=== PATIENT | female | born 1955 | race Caucasian/White ===

== ENCOUNTER → 2017-12-09 | Outpatient (CLI) | payer OTHER ==
[~2017-12-09] MED LIST: ACCUPRIL PO; ACTOS 30 MG TAB30 MG PO; ASPIRIN81 M2 PO; B-COMPLEX-VITA1 EACH PO; CALCIUM PO; CENTRUM SILVER1 EAC4 PO; COMPLETE M9 MG/15 ML PO; CYMBALTA60 MG PO; DILAUDID 2 MG TA2 MG PO; DOLOPHINE HCL5 MG PO; HUMALOG100 UNIT/1 SQ; HYDROCHLOROTHIA25 M1 PO; LANTUS SC; LANTUS SUBQ; LIPITOR20 MG PO; METHADONE HCL5 MG PO; MOBIC15 MG PO; MS CONTIN15 MG PO; NEURONTIN800 MG PO; NORCO 5-325 TA1 EACH PO; NORVASC10 MG PO; NOVOLOG100 UNIT/1 SQ; PERCOCET 10-321 EAC1 PO; PERCOCET 10-321 EACH PO; PERCOCET 7.5-31 EAC1 PO; PERCOCET 7.5-31 EACH PO; PERCOCET PO; PREVACID15 MG PO; PRILOSEC40 MG PO; PROLIA60 MG/1 ML SQ; RESTASIS1 EACH OPHTHALMIC; SENNA PO; TRAMADOL 50 MG50 MG PO; VITAMIN B-12100 MC1 PO; VITAMIN D2000 UNIT PO; WELCHOL 625 MG625 MG PO; ZYRTEC10 M2 PO; [UNRECOGNIZED DRUG - OTHER] PO; [UNRECOGNIZED DRUG - OTHER] PO; [UNRECOGNIZED DRUG - OTHER] PO; [UNRECOGNIZED DRUG - OTHER] PO; [UNRECOGNIZED DRUG - REMARK] PO
--- NOTE | 2017-12-10 08:24 | PAINCON ---
[facility] [address] [place] [address] PAIN MANAGEMENT CONSULTATION Name: KHUSHBOO ROSAS Room: [facility] IGGY Ralph#: [id number] Admission: 12/09/17 Attend Phys: Mai Richardson Discharge: Date of : 57 Report #: [id number] THIS REPORT FOR: //name// CC: Jen Doe DATE OF SERVICE: 12/09/2017 The patient is a 62-year-old female typically treated for lumbar radiculopathy, chronic pain, requiring high-risk complex medication management. Comorbidity includes morbid obesity. She was last seen in the Pain Clinic on 10/14/2017, continued methadone 5 mg 2 in the morning, 1 at noon, and 2 at night and Percocet 10/325 four a day. We talked about weaning of methadone at last visit. She does return to Pain Clinic today. She has weaned down to 1 methadone in the morning, 1 at noon, and 2 at night. Notes pain continues to be problematic with subjective pain impact score 7 on a VAS. She states she has completed a course of physical therapy. She is now doing home exercises. She notes she uses a walker about 95% of the time, came off 5% of the time. Primarily balance issues and concerns. She fell actually at her last visit to the Pain Clinic. During the exam today, note that she seems to be a little more "jerky and spastic." I mentioned this to the patient today. I am concerned that she is on a supratherapeutic dose of opiate, currently with 4 methadone a day (20 mg equating to roughly 80 mg of morphine and Percocet 10/325 four a day equating to about another 60 mg of morphine). The patient is a supratherapeutic dose of around 140 mg of morphine a day. Today, we talked about weaning Percocet down to 7.5/325 four a day and continue methadone 1 in the morning, 1 at noon, and 2 at night. A buccal drug swab was accomplished today. It should be positive for oxycodone and methadone. Discussion with the patient today about therapeutic issues. She rates her pain a 7 on a VAS. Again, bilateral knees, low back. PHYSICAL EXAMINATION: Shows a morbidly obese 62-year-old female, BMI is 44 kg/m2, blood pressure 125/89, pulse 88, respirations are 18. Alert and oriented to person, place and time, judged to be a reasonable historian. Rises from the chair using the walker, antalgic gait, again some spasticity noted with activity. We reviewed the fact that opiate medications are being used to provide analgesia adequate to support activities of daily living, [place] [address] PAIN MANAGEMENT CONSULTATION Name: KHUSHBOO ROSSA Riri Room: [facility] IGGY Ralph#: [id number] Admission: 12/09/17 Attend Phys: Mai Richardson Discharge: Date of : 57 Report #: [id number] specific pain score on the 0-10 Visual Analog Scale. The current opiate medications are providing sufficient analgesia to allow the patient to participate in activities of daily living. The patient is not exhibiting any aberrant behavior suggestive of drug diversion. The patient is not having any adverse reactions to medications. The patient is not suffering from daytime somnolence or mental acuity changes. The patient is managing opiate-induced constipation with appropriate ypec-cqr-jfmvjth agents and dietary considerations. The patient was counseled on concern for caution with operating a motor vehicle while using opiate medications. A physical exam was performed and the patient's functional status was evaluated. All patients with back pain were advised against the bed rest greater than 4 days and were advised to return to normal activities. Pain score assessment was noted and the treatment plan was reviewed with the patient. All current medications, both prescribed and OTC were reviewed and reconciled on the electronic medical record. Tobacco screening was accomplished and smoking cessation was advised when indicated. BMI was noted and diet/exercise modification was recommended for all patients following outside normal parameters. I reviewed with the patient today their responsibilities to safeguard prescription medications, reviewed their responsibility to utilize medications only as prescribed by the physician. They are to seek and receive pain medications only from 1 physician group ( [facility]). They are to use 1 pharmacy and keep the clinic informed if they change pharmacies. Their responsibilities include making followup visits in a timely fashion and to avoid abrupt discontinuation of medication usage. Their responsibilities further include bringing their medications (bottles from the pharmacy with residual pills) to the visit for possible confirmation of pill counts and the patient understands it is their responsibility to submit to random drug screens to ensure both that the medications prescribed are present, and that no other controlled substances are present. All prescriptions provided today were generated electronically. ASSESSMENT: Lumbar radiculopathy, neuropathic pain, chronic pain syndrome requiring high-risk complex medication management. RECOMMENDATIONS: 1. Buccal drug swab today. 2. Renew methadone 5 mg, decreasing from 150 to 120 tablets a month. 3. Decrease Percocet from 10/325 to 7.5/325 up to 4 a day. Follow up in 2 months for reevaluation. We will review buccal drug swab, consider further [place] [address] PAIN MANAGEMENT CONSULTATION Name: KHUSHBOO ROSAS Room: [facility]#: [id number] Admission: 12/09/17 Attend Phys: Mai Richardson Discharge: Date of : 57 Report #: [id number] Discharged in good and stable condition after prolonged visit from 11:20-11:45, greater than 50% of time spent counseling the patient. <ELECTRONICALLY SIGNED> By: Vicente Doe DO 12/10/17 0824 [id number] Doe DO /nt
== END ==
LOC: M.PC 01:26
DX: M54.16 Radiculopathy, lumbar region (principal); G89.4 Chronic pain syndrome; E66.01 Morbid (severe) obesity due to excess calories; Z79.899 Other long term (current) drug therapy

== ENCOUNTER → 2018-02-03 | Outpatient (CLI) | payer OTHER ==
--- NOTE | 2018-02-08 07:00 | PAINCON ---
[address] [address] PAIN MANAGEMENT CONSULTATION Name: KHUSHBOO ROSAS Room: [facility] IGGY Ralph#: [id number] Admission: 02/03/18 Attend Phys: Mai Richradson Discharge: Date of : 57 Report #: [id number] THIS REPORT FOR: //name// CC: Jen Doe The patient is a 62-year-old female, long treated for lumbar radiculopathy, chronic pain syndrome requiring complex medication management. Comorbidity includes morbid obesity. Last seen in pain clinic, 12/09/2017. We continued methadone 5 mg having lowered from 5 to 4 tablets a day the prior visit (1 tab in the morning, 1 at noon, and 2 at night). We lowered Percocet at last visit 10/ four a day down to 7.5 four a day. Buccal swab at last visit was positive for prescribed medications. She returns to pain clinic today. She continues at a supratherapeutic opiate load at 125 mEq of morphine. I talked at length today about opiate-induced hyperalgesia. The patient tells me with lowering opiate, her pain has gotten a little worse. We talked about our goal of continuing to lower opiate as able. She uses a walker 90+ percent of the time for balance and for some assist. We talked about physical therapy. She does do "laps" around her home, trying to walk as much as she can. We suggested she follow with water aerobics. She looked in the [facility] and has actually been a member there but that was cost prohibitive. She tells me that the [place] pool which is an indoor pool and offers water aerobics is cost effective for her. I strongly encouraged to follow up with this. PHYSICAL EXAMINATION: Otherwise notes 5 feet 3 inch, 248 pound female, BMI is 44.5 kilograms per meter squared. Blood pressure is 149/53, pulse is 90, respirations are 16. Subjective pain score is 8 on VAS. Primary pain in the mid back, bilateral knees. Rises from chair using armrests, again moderately ataxic and antalgic gait with a walker. She has diffuse tenderness across the low back, pain about the knees, though with her body habitus, it is difficult to detect any ballotable edema. She does have greater than 90 degree flexion of the knees. Lower extremity strength is symmetric. We reviewed the fact that opiate medications are being used to provide analgesia adequate to support activities of daily living, not attempting to achieve a specific pain score on the 0-10 Visual Analog Scale. The current opiate medications are providing sufficient analgesia to allow the patient to participate in activities of daily living. The patient is not exhibiting any aberrant behavior suggestive of drug diversion. The patient is not having any adverse reactions to medications. The patient is not suffering from daytime somnolence or mental acuity changes. The patient is managing opiate-induced constipation with appropriate titp-tjt-qldhnvw agents and dietary considerations. The patient was counseled on concern for caution with operating a motor vehicle while [place] [address] PAIN MANAGEMENT CONSULTATION Name: ROSASKHUSHBOO J [id number] Admission: 02/03/18 Attend Phys: Mai Richardson Discharge: Date of : 57 Report #: [id number] A physical exam was performed and the patient's functional status was evaluated. All patients with back pain were advised against the bed rest greater than 4 days and were advised to return to normal activities. Pain score assessment was noted and the treatment plan was reviewed with the patient. All current medications, both prescribed and OTC were reviewed and reconciled on the electronic medical record. Tobacco screening was accomplished and smoking cessation was advised when indicated. BMI was noted and diet/exercise modification was recommended for all patients following outside normal parameters. I reviewed with the patient today their responsibilities to safeguard prescription medications, reviewed their responsibility to utilize medications only as prescribed by the physician. They are to seek and receive pain medications only from 1 physician group ( [facility]). They are to use 1 pharmacy and keep the clinic informed if they change pharmacies. Their responsibilities include making followup visits in a timely fashion and to avoid abrupt discontinuation of medication usage. Their responsibilities further include bringing their medications (bottles from the pharmacy with residual pills) to the visit for possible confirmation of pill counts and the patient understands it is their responsibility to submit to random drug screens to ensure both that the medications prescribed are present, and that no other controlled substances are present. All prescriptions provided today were generated electronically. RECOMMENDATION: Continue methadone 5 mg 1 in the morning, 1 at noon, and 2 at night. Continue Percocet 7.5/325 four a day, meloxicam daily and gabapentin 800 mg t.i.d. Follow up in 2 months for reevaluation. We will try and wean opiate load further as able. Discharged in good and stable condition. <ELECTRONICALLY SIGNED> By: Vicente Doe DO 02/08/18 0700 [id number] Doe DO /nt
== END ==
LOC: M.PC 08:07
DX: M54.16 Radiculopathy, lumbar region (principal); G89.4 Chronic pain syndrome; Z79.899 Other long term (current) drug therapy

== ENCOUNTER → 2018-03-31 | Outpatient (CLI) | payer OTHER ==
--- NOTE | 2018-04-01 07:19 | PAINCON ---
[address] [address] PAIN MANAGEMENT CONSULTATION Name: KHUSHBOO ROSAS Room: [facility] IGGY Ralph#: [id number] Admission: 03/31/18 Attend Phys: Mai Richardson Discharge: Date of : 57 Report #: [id number] THIS REPORT FOR: //name// CC: Jen Doe DATE OF SERVICE: 03/31/2018 The patient is a 62-year-old female, long treated for lumbar radiculopathy requiring high risk complex medication management. Comorbidities include morbid obesity. She has had ongoing osteoarthritis affecting her knees. Last visit was 02/03/2018. We had begun weaning the patient's chronic opiate analgesics. She has been using Percocet 10/325 for breakthrough pain up to 4 a day along with methadone 5 mg 1 in the morning, 1 at noon, and 2 at night. Last visit, we decreased Percocet to 7.5/325. The patient states pain continues to be problematic, rates it a "10" on VAS. She states pain is primarily low back and bilateral knees. She states she had stubbed her foot and broke 2 toes in the right foot, but her pain was getting worse even before this. She uses a walker to ambulate to help with balance. PHYSICAL EXAMINATION: Unchanged. Morbidly obese, 5 feet 3 inches, 253-pound female, BMI is 44.5 kilograms per meter squared. Blood pressure 158/88, pulse 80, respirations 16. Lower extremity strength is modestly diminished. She is wearing a walking post-surgical boot on her left foot. Lower extremity strength diminished but symmetric. We reviewed diagnostic findings, somewhat dated MRI from 02/28/2015 noting a vacuum disk phenomena at L5-S1 with grade 1 subluxation and spondylolisthesis. There was a question of a bulging disk, left of midline L5-S1, though presently, it does not correlate with any significant lumbar radicular symptoms. We reviewed the fact that opiate medications are being used to provide analgesia adequate to support activities of daily living, not attempting to achieve a specific pain score on the 0-10 Visual Analog Scale. The current opiate medications are providing sufficient analgesia to allow the patient to participate in activities of daily living. The patient is not exhibiting any aberrant behavior suggestive of drug diversion. The patient is not having any adverse reactions to medications. The patient is not suffering from daytime somnolence or mental acuity changes. The patient is managing opiate-induced constipation with appropriate ovxz-ryj-lahqlzg agents and dietary considerations. The patient was counseled on concern for caution with operating a motor vehicle while using opiate medications. A physical exam was performed and the patient's functional status was evaluated. All patients with back pain were advised against the bed rest greater than 4 [place] [address] PAIN MANAGEMENT CONSULTATION Name: ROSASKHUSHBOO J [id number] Admission: 03/31/18 Attend Phys: Mai Richardson Discharge: Date of : 57 Report #: [id number] days and were advised to return to normal activities. Pain score assessment was noted and the treatment plan was reviewed with the patient. All current medications, both prescribed and OTC were reviewed and reconciled on the electronic medical record. Tobacco screening was accomplished and smoking cessation was advised when indicated. BMI was noted and diet/exercise modification was recommended for all patients following outside normal parameters. I reviewed with the patient today their responsibilities to safeguard prescription medications, reviewed their responsibility to utilize medications only as prescribed by the physician. They are to seek and receive pain medications only from 1 physician group ( [facility]). They are to use 1 pharmacy and keep the clinic informed if they change pharmacies. Their responsibilities include making followup visits in a timely fashion and to avoid abrupt discontinuation of medication usage. Their responsibilities further include bringing their medications (bottles from the pharmacy with residual pills) to the visit for possible confirmation of pill counts and the patient understands it is their responsibility to submit to random drug screens to ensure both that the medications prescribed are present, and that no other controlled substances are present. All prescriptions provided today were generated electronically. ASSESSMENT: Axial back pain, lumbar radiculopathy, chronic pain syndrome requiring complex medication management in a morbidly obese female who is quite sedentary. RECOMMENDATION: I had a long discussion with the patient today. In fact, she was seen for approximately 30 minutes today. We discussed risk stratification for opiate analgesics talking about 0-50, 50-90 and 90+ mg morphine equivalents daily. She is currently utilizing approximately 125 mEq of morphine putting her into the high risk group. I told her we need to endeavor to continue to wean her opiate analgesic. Would like to at least get below 90 mEq of morphine. We elected to lower her methadone from 5 mg 4 tablets a day to 3 a day, decreasing the overall opiate load to 105 mg morphine equivalents. We will keep her Percocet at 7.5/325. Continue gabapentin 800 mg t.i.d. At next visit we may consider decreasing prn med to Percocet 5/325? I think the patient would benefit from weight loss. She states that she has tried everything. She, I think, would be an excellent candidate for bariatric surgery and strongly recommended that she seek consultation for same. She needs to increase physical activity, but states her weight limits her function. She complains of pain precluding functional issues as well. I pointed out she has been on a "supratherapeutic" dose of opiate and despite this, has been unable to increase functional activity. I think at this point, we need to take a turn our focus and [place] [address] PAIN MANAGEMENT CONSULTATION Name: ROSASKHUSHBOO Room: [facility]#: [id number] Admission: 03/31/18 Attend Phys: Mai Richardson Discharge: Date of : 57 Report #: [id number] analgesics, and stress increased function. I referred patient to a bariatric surgery for possible weight loss surgical intervention if indicated; at least to enable patient to be aware of what possibilities are available to her. She is diabetic, and bariatic surgery may help her manage her glucose as well. Again, strongly recommend increased physical activity, may consider referal to PT, but primarily patient needs to "buy in" to need to increase her functional status. I have taken the liberty of writing for 1 month of the lowered opiate dose. The patient was discharged in good and stable condition. Incidentally, her last random drug screen 12/09/2017 was positive for prescribed medications. The patient was seen for approximately 30 minutes today, greater than 50% of time spent counseling the patient. <ELECTRONICALLY SIGNED> By: Vicente Doe DO 04/01/18 [id number] [place], [place] [address]puneet Doe DO /itzel
== END ==
LOC: M.PC 03:36
DX: M54.16 Radiculopathy, lumbar region (principal); G89.4 Chronic pain syndrome; M17.0 Bilateral primary osteoarthritis of knee; E66.01 Morbid (severe) obesity due to excess calories; Z79.899 Other long term (current) drug therapy

== ENCOUNTER → 2018-04-28 | Outpatient (CLI) | payer OTHER ==
--- NOTE | 2018-04-29 06:59 | PAINCON ---
[facility] [address] [place] [address] PAIN MANAGEMENT CONSULTATION Name: KHUSHBOO ROSAS Room: [facility] IGGY Ralph#: [id number] Admission: 04/28/18 Attend Phys: Mai Richardson Discharge: Date of : 57 Report #: [id number] THIS REPORT FOR: //name// CC: Jen Doe HISTORY OF PRESENT ILLNESS: The patient is a 62-year-old female, being treated for lumbar radiculopathy and chronic pain syndrome, requiring complex medication management. Comorbidity includes morbid obesity and osteoarthritis affecting her knees. Last random drug screen, 12/09/2017, is positive for prescribed medications. She returns to the pain clinic today; last visit was 03/31/2018. We are trying to slowly wean opiate analgesics. We decreased her methadone 5 mg 4 a day to 3 a day at last visit. Continued her Percocet 7.5/325 at 4 a day. This equates to approximately 105 mg morphine equivalence daily. The patient returns to the pain clinic today. She states she is feeling like she is having trouble focusing with some gkhk-lxx-ryeexhp agents. She was recommended for neuropathic pain. Her production control clerk recommended alpha-lipoic acid. I am unaware of side effects of this agent. I did suggest, however, that certainly her opiate analgesics can impact her cognitive function. She is quite a rambling historian, but this is unchanged for the patient. Last visit, we had talked about the fact that she may benefit from a bariatric surgery. She stated she had tried "everything" to lose weight, but her BMI remains over 40 kilograms per meter squared (5 feet 3 inches, 245 pounds with a BMI of 43.1 kilograms per meter squared). She did apparently contact Dr. Vicente Adam's office, general surgeon who does bariatric surgery. However, her felt that it was "too major of a surgery for her to have". They were concerned that she had diabetes and would not be a good surgical candidate. I did point out that bariatric surgery often can help control diabetes. Nonetheless, the patient has lost 8 pounds since the last visit using Slimfast. I congratulated her on this and suggested she continue with dietary discretion and increased activity. She is quite sedentary, she tells me that for exercise, she merely rises from the chair, stands for about 20 seconds and sits back down; she does this 5-10 cycles. She demonstrated this for me today and she indeed struggles a great deal simply arising from the chair. She has to use the walker and her upper body strength to get upright. She tells me she also does some leg extensions, raising her hips and extending her legs at the knee. Again, she demonstrated this and has a great deal of difficulty due to her significant endomorphic build. The patient does note a different primary pain today and is complaining more of an abdominal and infracostal pain bilaterally above the umbilicus. Her axial back pain [place] [address] PAIN MANAGEMENT CONSULTATION Name: ROSASKHUSHBOO J Room: [facility] Ralph#: [id number] Admission: 04/28/18 Attend Phys: Mai Richardson Discharge: Date of : 57 Report #: [id number] We reviewed the fact that opiate medications are being used to provide analgesia adequate to support activities of daily living, not attempting to achieve a specific pain score on the 0-10 Visual Analog Scale. The current opiate medications are providing sufficient analgesia to allow the patient to participate in activities of daily living. The patient is not exhibiting any aberrant behavior suggestive of drug diversion. The patient is not having any adverse reactions to medications. The patient is not suffering from daytime somnolence or mental acuity changes. The patient is managing opiate-induced constipation with appropriate qsrr-juf-qzhfqxl agents and dietary considerations. The patient was counseled on concern for caution with operating a motor vehicle while using opiate medications. A physical exam was performed and the patient's functional status was evaluated. All patients with back pain were advised against the bed rest greater than 4 days and were advised to return to normal activities. Pain score assessment was noted and the treatment plan was reviewed with the patient. All current medications, both prescribed and OTC were reviewed and reconciled on the electronic medical record. Tobacco screening was accomplished and smoking cessation was advised when indicated. BMI was noted and diet/exercise modification was recommended for all patients following outside normal parameters. I reviewed with the patient today their responsibilities to safeguard prescription medications, reviewed their responsibility to utilize medications only as prescribed by the physician. They are to seek and receive pain medications only from 1 physician group ( [facility]). They are to use 1 pharmacy and keep the clinic informed if they change pharmacies. Their responsibilities include making followup visits in a timely fashion and to avoid abrupt discontinuation of medication usage. Their responsibilities further include bringing their medications (bottles from the pharmacy with residual pills) to the visit for possible confirmation of pill counts and the patient understands it is their responsibility to submit to random drug screens to ensure both that the medications prescribed are present, and that no other controlled substances are present. All prescriptions provided today were generated electronically. PHYSICAL EXAMINATION: GENERAL: Otherwise shows a 62-year-old female. VITAL SIGNS: Again, BMI is 43.1 kilograms per meter squared. Blood pressure 120/62, pulse is 89, respirations are 16 and room air oxygen saturation 95%. She is afebrile. Subjective pain score 7-8 on a VAS. She does not use tobacco products. She has not fallen since we last saw her. She does continue to take adjuvant medications including gabapentin 800 mg t.i.d. and meloxicam [address] [place] [address] PAIN MANAGEMENT CONSULTATION Name: ROSASKHUSHBOO J Room: [facility]#: [id number] Admission: 04/28/18 Attend Phys: Mai Richardson Discharge: Date of : 57 Report #: [id number] ASSESSMENT: 1. Lumbar radiculopathy 2. Axial back pain 3. OA: knees, bilat 4. General deconditioning 5. Morbid Obesity, BMI >40 6. V58.69: Complex medication management 7. Diabete Mellitus Today, I did review with the patient that we intended to wean down to an opiate load of 90 mg or less. After a long discussion, we have elected to continue methadone 5 mg t.i.d., but decrease Percocet from 7.5 to 5 mg 4 a day. This will come in right at 90 mg of morphine a day. I have taken the liberty of writing for 2 months of current medication. I did suggest she contact her primary care physician and/or her insurance provider regarding finding another pain physician to manage her care. I have taken the liberty of writing for 2 months of current medication. I am leaving the practice here and she will need to find another physician. We had a prolonged visit today. She was seen from 09:25 to 09:50. Greater than 50% of this time was spent counseling the patient regarding opiate risk profiles and encouraging weight reduction and increased functional status. Discharged in good and stable condition. The patient indicated she wanted to follow up with Dr. Noah Dorantes at [place]. <ELECTRONICALLY SIGNED> By: Vicente Doe DO 04/29/18 0659 [id number] 1308[facility] Hospitalpuneet Doe DO /nt
== END ==
LOC: M.PC 00:31
DX: M54.16 Radiculopathy, lumbar region (principal); M17.0 Bilateral primary osteoarthritis of knee; E11.9 Type 2 diabetes mellitus without complications; G89.4 Chronic pain syndrome; M54.5 Low back pain; E66.01 Morbid (severe) obesity due to excess calories; Z79.899 Other long term (current) drug therapy

== ENCOUNTER → 2019-02-15 | Outpatient (CLI) | payer OTHER | LOC: M.MRI 02-08 17:30 | DX: G31.9 Degenerative disease of nervous system, unspecified (principal); M19.90 Unspecified osteoarthritis, unspecified site; E11.40 Type 2 diabetes mellitus with diabetic neuropathy, unspecified; E11.319 Type 2 diabetes mellitus with unspecified diabetic retinopathy without macular edema; I10 Essential (primary) hypertension; E66.8 Other obesity; M81.0 Age-related osteoporosis without current pathological fracture; Z82.49 Family history of ischemic heart disease and other diseases of the circulatory system; Z88.8 Allergy status to other drugs, medicaments and biological substances; Z79.4 Long term (current) use of insulin; Z82.3 Family history of stroke; Z81.1 Family history of alcohol abuse and dependence ==

== ENCOUNTER → 2019-03-10 | Outpatient (CLI) | payer OTHER ==
[2019-03-11 15:10] LABS: CERULOPLASMIN 24.4 mg/dL (19.0-39.0)
[2019-03-14 15:06] LABS: M-SPIKE Not Observed g/dL (Not Observed)
== END ==
LOC: M.LAB 12:02
PROVIDERS: Psychiatry & Neurology Neuromuscular Medicine
DX: R44.3 Hallucinations, unspecified (principal); G25.9 Extrapyramidal and movement disorder, unspecified; F32.9 Major depressive disorder, single episode, unspecified; G62.9 Polyneuropathy, unspecified

== ENCOUNTER → 2019-03-16 | Outpatient (CLI) | payer OTHER ==
--- NOTE | 2019-03-17 19:12 | EEG ---
[address] [address] EEG STUDY REPORT Name: DEANNE ROSASNA BRICE Room: [facility]#: [id number] Admission: 03/16/19 Attend Phys: Jose Dunlap MD Discharge: Date of : 57 Report #: [id number] THIS REPORT FOR: //name// CC: Jen Dunlap DATE OF SERVICE: 03/16/2019 This patient is being evaluated for altered mental status. EEG was done by placing the electrodes by standard 10-20 system of electrode placement. Both referential and sequential montages were used for recording. Background activity in this patient's EEG is about 9 Hz and 30 microvolt. It is a symmetrical activity. Photic stimulation is unremarkable. The patient went to sleep that is associated with bilateral slowing and vertex sharp waves. Throughout the record, no active epileptiform activity was noticed. IMPRESSION: This patient's EEG is intermixed with some theta range slowing on both sides. That is a nonspecific abnormality, which can occur with drowsiness, effect of psychotropic medication, dementia, etc. Clinical correlation is recommended. <ELECTRONICALLY SIGNED> By: Jose Dunlap MD 03/17/19 1912 1825 T: 05/01mary Dunlap MD /nt
== END ==
LOC: M.CRD 12:31
DX: G25.9 Extrapyramidal and movement disorder, unspecified (principal); R44.3 Hallucinations, unspecified; F32.9 Major depressive disorder, single episode, unspecified; G62.9 Polyneuropathy, unspecified

== ENCOUNTER 2020-07-31 12:33 | Inpatient (IN) | payer OTHER ==
[~2020-07-31] VITALS: Ht 160 cm; Wt 110.4 kg
[2020-07-31 12:57] VITALS: BP 160/83
[2020-07-31 15:28] LABS: ABSOLUTE BASOPHILS 0.1 thou/uL (0.0-0.2); ABSOLUTE LYMPHOCYTES 1.9 thou/uL (0.8-5.3); ABSOLUTE NEUTROPHILS 8.6 thou/uL (1.6-8.1); BASOPHILS 1.1 %; EOSINOPHILS 0.3 %; HEMATOCRIT 49.8 % (37.0-47.0); HEMOGLOBIN 17.4 gm/dL (12.0-15.0); LYMPHOCYTES 16.4 %; MCH 33.5 pg (26.0-34.0); MCV 95.8 fL (80.0-100.0); MONOCYTES 8.8 %; MPV 10.9 fl. (7.2-11.1); NUCLEATED RBCS 0 /100WBC; PLATELET COUNT* 191 thou/uL (150-400); POLYS 73.4 %; RBC 5.19 mil/uL (4.20-5.00); RDW-CV 13.6 % (10.5-14.5); WBC 11.7 thou/uL (4.0-11.0)
[2020-07-31 15:41] LABS: CALCIUM 9.9 mg/dL (8.5-10.1); CREATININE 1.3 mg/dL (0.6-1.3)
[2020-07-31 15:53] LABS: APTT 28.3 Seconds (25.0-31.3); INR 1.1; PROTIME 10.9 Seconds (9.20-11.50)
[2020-07-31 15:56] LABS: ALBUMIN 4.7 g/dL (3.4-5.0); TOTAL PROTEIN 9.1 g/dL (6.4-8.2)
[2020-07-31 16:08] LABS: URINE BLOOD TRACE (Negative); URINE CLARITY CLEAR; URINE COLOR YELLOW; URINE GLUCOSE-RANDOM TRACE (Negative); URINE KETONES 2+ (Negative); URINE LEUKOCYTES-REFLEX NEGATIVE (Negative); URINE NITRITE-REFLEX NEGATIVE (Negative); URINE PROTEIN 1+ (Negative); URINE UROBILINOGEN 0.2 E.U./dl (0.2-1.0)
[2020-07-31 16:11] LABS: ICTOTEST (BILI CONFIRMATORY) Negative (Negative); URINE BILIRUBIN 1+ (Negative)
[2020-07-31 16:31] LABS: AMP/METHAMP Negative (Negative); BARBITURATES Negative (Negative); BENZODIAZEPINES Negative (Negative); COCAINE Negative (Negative); METHADONE Negative (Negative); OPIATES Negative (Negative); PCP Negative (Negative); THC Negative (Negative)
--- NOTE | 2020-07-31 17:23 | EKG ---
[place] [address] ELECTROCARDIOGRAM REPORT Name: DEANNE ROSASNA BRICE Room: [facility]#: [id number] Admission: 07/31/20 Attend Phys: Discharge: Date of : 57 Date of Service: 07/31/20 1541 Report #: [id number] THIS REPORT FOR: //name// [facility] ED Test Date: 2020-07-31 Test Time: 15:41:14 Pat Name: KHUSHBOO ROSAS Department: Room: Gender: F Anesthesia Resident: DOTSON : 1955 Requested By: Nahum Colvin Order Number: [id number] MD: Orlando Burton Measurements Intervals [place] Rate: 98 P: 12 IL: 151 QRS: 13 QRSD: 87 T: -45 QT: 372 QTc: 476 Interpretive Statements Sinus rhythm Left ventricular hypertrophy, by voltage Inferior infarct, age indeterminate Artifact in lead(s) I,III,aVR,aVL,aVF,V1,V2,V3,V4,V5 Compared to ECG 10/03/2013 10:08:25 Left ventricular hypertrophy now present Myocardial infarct finding now present Electronically Signed On 07-31-2020 17:23:05 CDT by Orlando Burton [email or web address] <ELECTRONICALLY SIGNED> By: Orlando Burton MD, [facility] 07/31/20 1723 1541 1541 Orlando Burton MD, [facility] /EPI
[2020-07-31 18:56] LABS: SALICYLATE < 2.8 mg/dL (2.8-20.0)
[2020-07-31 18:59] LABS: ACETAMINOPHEN < 2 ug/mL (10-30); ALCOHOL < 10 mg/dL (<10)
[2020-07-31 20:25] VITALS: BP 146/72
[2020-07-31 21:00] VITALS: BP 141/74
[2020-07-31] MEDS ORDERED: PERCOCET 7.5-31 EAC1 PO (21:37)
[2020-08-01] VITALS: BP 158/63
[2020-08-01 04:00] VITALS: BP 121/64
[2020-08-01 08:00] VITALS: BP 148/57
[2020-08-01 11:45] VITALS: BP 143/64
[2020-08-01 15:51] VITALS: BP 138/56
[2020-08-01 19:50] VITALS: BP 129/63
[2020-08-02 00:30] VITALS: BP 122/60
[2020-08-02 04:32] VITALS: BP 136/56
[2020-08-02 05:04] LABS: HEMATOCRIT 38.8 % (37.0-47.0); MCH 33.5 pg (26.0-34.0); MCHC 34.7 g/dL (28.0-37.0); MCV 96.8 fL (80.0-100.0); MPV 11.5 fl. (7.2-11.1); RBC 4.01 mil/uL (4.20-5.00); RDW-CV 13.8 % (10.5-14.5); WBC 5.2 thou/uL (4.0-11.0)
[2020-08-02 05:06] LABS: HEMOGLOBIN 13.5 gm/dL (12.0-15.0)
[2020-08-02 05:18] LABS: ALBUMIN 3.2 g/dL (3.4-5.0); CALCIUM 8.4 mg/dL (8.5-10.1); CREATININE 0.9 mg/dL (0.6-1.3); MAGNESIUM 1.6 mg/dL (1.8-2.4); POTASSIUM 3.2 mmol/L (3.5-5.1); TOTAL BILIRUBIN 0.6 mg/dL (<0.1-1.0); TOTAL PROTEIN 6.5 g/dL (6.4-8.2)
[2020-08-02 07:30] VITALS: BP 170/76
[2020-08-02 14:09] VITALS: BP 157/66
[2020-08-02 19:00] VITALS: BP 139/56
[2020-08-02 19:30] VITALS: BP 114/46
[2020-08-03] VITALS: BP 129/57
[2020-08-03 04:53] LABS: HEMATOCRIT 39.2 % (37.0-47.0); HEMOGLOBIN 13.5 gm/dL (12.0-15.0); MCH 33.5 pg (26.0-34.0); MCHC 34.4 g/dL (28.0-37.0); MCV 97.5 fL (80.0-100.0); MPV 10.8 fl. (7.2-11.1); RBC 4.02 mil/uL (4.20-5.00); RDW-CV 13.7 % (10.5-14.5); WBC 4.5 thou/uL (4.0-11.0)
[2020-08-03 05:01] LABS: CALCIUM 8.8 mg/dL (8.5-10.1); MAGNESIUM 1.7 mg/dL (1.8-2.4); POTASSIUM 3.6 mmol/L (3.5-5.1)
[2020-08-03 07:30] VITALS: BP 150/77
[2020-08-03 09:25] VITALS: BP 129/57
[2020-08-03 12:02] VITALS: BP 167/81
[2020-08-03] MEDS ORDERED: GABAPENTIN800 M1 PO (16:40)
[2020-08-03 19:50] VITALS: BP 137/63
[2020-08-04] VITALS: BP 142/64
[2020-08-04 05:11] LABS: HEMATOCRIT 41.4 % (37.0-47.0); HEMOGLOBIN 14.3 gm/dL (12.0-15.0); MCH 33.7 pg (26.0-34.0); MCHC 34.5 g/dL (28.0-37.0); MCV 97.6 fL (80.0-100.0); MPV 10.6 fl. (7.2-11.1); RBC 4.24 mil/uL (4.20-5.00); RDW-CV 13.8 % (10.5-14.5)
[2020-08-04 05:28] LABS: ALBUMIN 3.7 g/dL (3.4-5.0); CALCIUM 9.5 mg/dL (8.5-10.1); CREATININE 1.1 mg/dL (0.6-1.3); POTASSIUM 3.7 mmol/L (3.5-5.1); TOTAL BILIRUBIN 0.6 mg/dL (<0.1-1.0); TOTAL PROTEIN 7.6 g/dL (6.4-8.2)
[2020-08-04 08:00] VITALS: BP 141/82
[2020-08-04 20:13] VITALS: BP 132/63
[2020-08-05 05:36] LABS: GLYCOHEMOGLOBIN (HGB A1C) 7.3 % (4.8-5.6)
[2020-08-05 08:00] VITALS: BP 115/63
[2020-08-05 08:21] VITALS: BP 154/72
[2020-08-05 16:00] VITALS: BP 139/61
[2020-08-05 21:37] VITALS: BP 147/62
[2020-08-06 07:10] VITALS: BP 175/68
[2020-08-06] MEDS ORDERED: CEFDINIR300 MG PO (08:01)
[2020-08-06] MEDS ORDERED: NEURONTIN 400400 M1 PO (08:01)
[2020-08-06 11:27] VITALS: BP 175/68
[2020-08-06 12:18] VITALS: BP 175/68
[2020-08-06 12:26] VITALS: BP 175/68
[2020-08-06 13:00] VITALS: BP 175/68
== END 2020-08-06 13:01 | disposition home or self-care (01) | DRG 177 ==
LOC: M.ERS 12:33 → M.TBA-ER 19:46 → M.2W 19:46 → M.ORTHSURG 08-04 19:45
PROVIDERS: Family Medicine; Nurse Practitioner Family; Psychiatry & Neurology Neurology; ADMIT Internal Medicine; ATTEND Internal Medicine
DX: J15.6 Pneumonia due to other Gram-negative bacteria (principal); G92 Toxic encephalopathy; R65.10 Systemic inflammatory response syndrome (SIRS) of non-infectious origin without acute organ dysfunction; N39.0 Urinary tract infection, site not specified; M47.9 Spondylosis, unspecified; E11.9 Type 2 diabetes mellitus without complications; I10 Essential (primary) hypertension; G31.84 Mild cognitive impairment of uncertain or unknown etiology; F32.9 Major depressive disorder, single episode, unspecified; T50.995A Adverse effect of other drugs, medicaments and biological substances, initial encounter; E86.0 Dehydration; M46.47 Discitis, unspecified, lumbosacral region; Z20.828 Contact with and (suspected) exposure to other viral communicable diseases; Y92.89 Other specified places as the place of occurrence of the external cause; Z90.49 Acquired absence of other specified parts of digestive tract; Z98.42 Cataract extraction status, left eye; Z98.41 Cataract extraction status, right eye; Z98.891 History of uterine scar from previous surgery; Z79.84 Long term (current) use of oral hypoglycemic drugs; Z79.4 Long term (current) use of insulin; Z79.899 Other long term (current) drug therapy; Z79.82 Long term (current) use of aspirin; Z88.8 Allergy status to other drugs, medicaments and biological substances

== ENCOUNTER → 2020-09-24 | Outpatient (CLI) | payer OTHER ==
[~2020-09-24] MED LIST changes: +CEFDINIR300 MG PO; +GABAPENTIN800 M1 PO; +HYDROCODON-ACE1 EAC7 PO; +MIRALAX17 GM PO; +NEURONTIN 400400 M1 PO; +PROTONIX40 M2 PO; +PROVIGIL 100 M100 MG PO
[2020-09-24 11:57] LABS: CSF GLUCOSE 96 mg/dl (40-70); CSF PROTEIN 83.7 mg/dl (15-45)
[2020-09-24 12:34] LABS: CSF CLARITY CLEAR; CSF COLOR COLORLESS; CSF RBC 4 /mm3; CSF WBC 7 /mm3 (0-10); VOLUME 6.5 ml
[2020-09-26 16:06] LABS: CSF VDRL Non Reactive (Non Rea:<1:1)
== END | disposition home or self-care (01) ==
LOC: M.RAD 09:34
PROVIDERS: ATTEND Psychiatry & Neurology Neurology
DX: R41.3 Other amnesia (principal); I10 Essential (primary) hypertension; E11.9 Type 2 diabetes mellitus without complications; E66.01 Morbid (severe) obesity due to excess calories; Z98.890 Other specified postprocedural states; Z79.899 Other long term (current) drug therapy; Z79.4 Long term (current) use of insulin; Z88.8 Allergy status to other drugs, medicaments and biological substances; Z79.891 Long term (current) use of opiate analgesic

== ENCOUNTER 2020-09-29 23:32 | Inpatient (IN) | payer OTHER ==
[~2020-09-29] VITALS: Ht 157.5 cm; Wt 101.0 kg
[~2020-09-29 23:32] MED LIST changes: -HYDROCODON-ACE1 EAC7 PO; -MIRALAX17 GM PO; -PROTONIX40 M2 PO; -PROVIGIL 100 M100 MG PO
[2020-09-29 23:37] VITALS: BP 136/102
[2020-09-30 00:56] LABS: URINE BILIRUBIN NEGATIVE (Negative); URINE BLOOD 1+ (Negative); URINE CLARITY CLEAR; URINE COLOR DARK YELLOW; URINE GLUCOSE-RANDOM NEGATIVE (Negative); URINE KETONES 1+ (Negative); URINE LEUKOCYTES-REFLEX NEGATIVE (Negative); URINE NITRITE-REFLEX NEGATIVE (Negative); URINE PROTEIN NEGATIVE (Negative); URINE UROBILINOGEN 0.2 E.U./dl (0.2-1.0)
[2020-09-30 01:19] LABS: CASTS None Seen /LPF (None Seen); MUCUS 4-6 Moderate strn/LPF (None Seen); SQUAMOUS 0-3 Few /LPF (0-3); URINE RBC >20 Many /HPF (0-2); URINE WBC-REFLEX 0-5 Rare /HPF (0-5)
[2020-09-30 01:20] LABS: CRYSTALS None Seen /LPF (None Seen)
[2020-09-30 02:30] VITALS: BP 141/62
[2020-09-30 02:41] LABS: ABSOLUTE LYMPHOCYTES 1.3 thou/uL (0.8-5.3); ABSOLUTE NEUTROPHILS 6.1 thou/uL (1.6-8.1); BASOPHILS 0.4 %; EOSINOPHILS 0.5 %; HEMATOCRIT 47.8 % (37.0-47.0); HEMOGLOBIN 16.1 gm/dL (12.0-15.0); LYMPHOCYTES 15.1 %; MCH 32.5 pg (26.0-34.0); MCHC 33.7 g/dL (28.0-37.0); MCV 96.4 fL (80.0-100.0); MONOCYTES 11.6 %; NUCLEATED RBCS 0 /100WBC; PLATELET COUNT* 235 thou/uL (150-400); POLYS 72.4 %; RBC 4.95 mil/uL (4.20-5.00); RDW-CV 14.6 % (10.5-14.5); WBC 8.4 thou/uL (4.0-11.0)
[2020-09-30 02:50] LABS: ALBUMIN 3.6 g/dL (3.4-5.0); ALKALINE PHOSPHATASE 78 U/L (46-116); ANION GAP 10 mmol/L (7-16); BUN 19 mg/dL (7-18); CHLORIDE 97 mmol/L (98-107); CO2 31 mmol/L (21-32); CREATININE 1.3 mg/dL (0.6-1.3); GLUCOSE 214 mg/dL (70-99); POTASSIUM 3.3 mmol/L (3.5-5.1); SGOT 28 U/L (15-37); SGPT 28 U/L (30-65); SODIUM 138 mmol/L (136-145); TOTAL BILIRUBIN 0.8 mg/dL (<0.1-1.0); TOTAL PROTEIN 7.7 g/dL (6.4-8.2); TROPONIN-I LEVEL <0.06 ng/mL (<0.06)
[2020-09-30 03:15] VITALS: BP 158/74
[2020-09-30 10:05] LABS: CALCIUM 10.6 mg/dL (8.5-10.1); CREATININE 1.2 mg/dL (0.6-1.3); PHOSPHORUS* 4.9 mg/dL (2.5-4.9)
[2020-09-30 13:54] VITALS: BP 159/72
[2020-09-30 16:36] VITALS: BP 112/62
[2020-09-30 20:18] VITALS: BP 107/52
[2020-10-01] VITALS: BP 118/52; BP 122/64
[2020-10-01 04:13] LABS: HEMATOCRIT 39.5 % (37.0-47.0); MCH 32.7 pg (26.0-34.0); MCHC 33.6 g/dL (28.0-37.0); MCV 97.3 fL (80.0-100.0); RBC 4.06 mil/uL (4.20-5.00); RDW-CV 14.6 % (10.5-14.5); WBC 6.6 thou/uL (4.0-11.0)
[2020-10-01 04:42] LABS: ALBUMIN 2.7 g/dL (3.4-5.0); CALCIUM 8.8 mg/dL (8.5-10.1); CREATININE 1.3 mg/dL (0.6-1.3); MAGNESIUM 1.3 mg/dL (1.8-2.4); POTASSIUM 4.1 mmol/L (3.5-5.1); TOTAL BILIRUBIN 0.6 mg/dL (<0.1-1.0); TOTAL PROTEIN 5.9 g/dL (6.4-8.2)
[2020-10-01 04:58] LABS: HEMOGLOBIN 13.3 gm/dL (12.0-15.0)
[2020-10-01 08:00] VITALS: BP 119/55
[2020-10-01 19:03] VITALS: BP 92/40
[2020-10-01 20:21] VITALS: BP 123/69
[2020-10-02 07:10] VITALS: BP 169/104
[2020-10-02 16:30] VITALS: BP 138/67
[2020-10-02 20:00] VITALS: BP 142/60
[2020-10-03 05:56] VITALS: BP 131/60
[2020-10-03 07:45] VITALS: BP 158/82
[2020-10-03 15:45] VITALS: BP 106/66
[2020-10-03 20:00] VITALS: BP 99/54
[2020-10-04 07:45] VITALS: BP 161/94
[2020-10-04 11:51] LABS: CALCIUM 8.7 mg/dL (8.5-10.1); CREATININE 0.9 mg/dL (0.6-1.3); MAGNESIUM 1.2 mg/dL (1.8-2.4); PHOSPHORUS* 2.1 mg/dL (2.5-4.9); POTASSIUM 3.7 mmol/L (3.5-5.1)
[2020-10-04 17:37] VITALS: BP 110/57
[2020-10-04 20:30] VITALS: BP 109/64
[2020-10-05 08:15] VITALS: BP 148/82
[2020-10-05] MEDS ORDERED: CYMBALTA60 MG PO (10:31)
[2020-10-05] MEDS ORDERED: HYDROCODON-ACE1 EAC7 PO (10:31)
[2020-10-05] MEDS ORDERED: MIRALAX17 GM PO (10:31)
[2020-10-05] MEDS ORDERED: PROTONIX40 M2 PO (10:31)
[2020-10-05] MEDS ORDERED: NORVASC10 MG PO (10:31)
[2020-10-05 16:00] VITALS: BP 122/75
[2020-10-05 20:00] VITALS: BP 136/66
[2020-10-06 07:30] VITALS: BP 168/79
[2020-10-06 15:41] VITALS: BP 118/65
[2020-10-06 20:00] VITALS: BP 101/62
[2020-10-07 08:00] VITALS: BP 150/74
[2020-10-07 15:48] VITALS: BP 138/72
[2020-10-07 20:00] VITALS: BP 156/71
[2020-10-08] MEDS ORDERED: PROVIGIL 100 M100 MG PO (11:47)
[2020-10-08 15:45] VITALS: BP 128/66
== END 2020-10-08 18:12 | DRG 562 ==
LOC: M.ERS 23:32 → M.3W 09-30 01:41 → M.2W 09-30 01:41 → M.TBA-ER 09-30 01:41 → M.2W 09-30 02:43 → M.3W 10-01 19:31
PROVIDERS: Internal Medicine; Personal Emergency Response Attendant; ADMIT Internal Medicine; ATTEND Internal Medicine
DX: S92.412A Displaced fracture of proximal phalanx of left great toe, initial encounter for closed fracture (principal); G93.41 Metabolic encephalopathy; R53.2 Functional quadriplegia; N17.0 Acute kidney failure with tubular necrosis; Z68.41 Body mass index [BMI] 40.0-44.9, adult; E44.0 Moderate protein-calorie malnutrition; N39.0 Urinary tract infection, site not specified; E66.01 Morbid (severe) obesity due to excess calories; M19.90 Unspecified osteoarthritis, unspecified site; W18.39XA Other fall on same level, initial encounter; E11.22 Type 2 diabetes mellitus with diabetic chronic kidney disease; I12.9 Hypertensive chronic kidney disease with stage 1 through stage 4 chronic kidney disease, or unspecified chronic kidney disease; M47.817 Spondylosis without myelopathy or radiculopathy, lumbosacral region; E87.6 Hypokalemia; E83.42 Hypomagnesemia; N18.30 Chronic kidney disease, stage 3 unspecified; G89.4 Chronic pain syndrome; E86.0 Dehydration; Z20.828 Contact with and (suspected) exposure to other viral communicable diseases; Z90.49 Acquired absence of other specified parts of digestive tract; Z98.42 Cataract extraction status, left eye; Z98.41 Cataract extraction status, right eye; Z98.891 History of uterine scar from previous surgery; Z79.4 Long term (current) use of insulin; Z79.899 Other long term (current) drug therapy; Z88.8 Allergy status to other drugs, medicaments and biological substances; Y93.89 Activity, other specified; Y92.89 Other specified places as the place of occurrence of the external cause; Y99.8 Other external cause status; Z23 Encounter for immunization

== ENCOUNTER 2020-10-08 15:15 | Inpatient (IN) | payer OTHER ==
[~2020-10-08] VITALS: Ht 157.5 cm; Wt 105.5 kg
[~2020-10-08 15:15] MED LIST changes: +HYDROCODON-ACE1 EAC7 PO; +MIRALAX17 GM PO; +PROTONIX40 M2 PO; +PROVIGIL 100 M100 MG PO
[2020-10-08 19:00] VITALS: BP 136/58
[2020-10-09 05:57] LABS: HEMATOCRIT 39.1 % (37.0-47.0); HEMOGLOBIN 13.3 gm/dL (12.0-15.0); MCH 32.6 pg (26.0-34.0); MCHC 34.1 g/dL (28.0-37.0); MCV 95.5 fL (80.0-100.0); RBC 4.1 mil/uL (4.20-5.00); RDW-CV 15.4 % (10.5-14.5); WBC 6.5 thou/uL (4.0-11.0)
[2020-10-09 06:05] LABS: CALCIUM 9.4 mg/dL (8.5-10.1); POTASSIUM 3.2 mmol/L (3.5-5.1)
[2020-10-09 08:00] VITALS: BP 144/90
[2020-10-09 12:07] LABS: MAGNESIUM 1.8 mg/dL (1.8-2.4); PHOSPHORUS* 3.5 mg/dL (2.5-4.9)
[2020-10-09 19:00] VITALS: BP 103/49
[2020-10-10 08:00] VITALS: BP 141/92
[2020-10-10 08:52] VITALS: BP 141/92
[2020-10-10 19:00] VITALS: BP 129/75
[2020-10-11 10:05] VITALS: BP 132/74
[2020-10-11 20:10] VITALS: BP 112/53
[2020-10-12 07:51] VITALS: BP 156/66
[2020-10-12 12:35] LABS: CALCIUM 9.4 mg/dL (8.5-10.1); CREATININE 1.2 mg/dL (0.6-1.3); POTASSIUM 3.8 mmol/L (3.5-5.1)
[2020-10-12 20:00] VITALS: BP 115/59
[2020-10-13 07:30] VITALS: BP 101/76
[2020-10-13 19:48] VITALS: BP 146/69
[2020-10-14 08:00] VITALS: BP 175/75
[2020-10-14 20:12] VITALS: BP 135/50
[2020-10-14 23:33] LABS: URINE BILIRUBIN NEGATIVE (Negative); URINE BLOOD 3+ (Negative); URINE COLOR YELLOW; URINE GLUCOSE-RANDOM 2+ (Negative); URINE KETONES TRACE (Negative); URINE LEUKOCYTES-REFLEX 3+ (Negative); URINE NITRITE-REFLEX NEGATIVE (Negative); URINE PROTEIN 1+ (Negative)
[2020-10-14 23:34] LABS: BACTERIA-REFLEX >30 Many /HPF (None Seen); CASTS None Seen /LPF (None Seen); CRYSTALS None Seen /LPF (None Seen); MUCUS 4-6 Moderate strn/LPF (None Seen); SQUAMOUS 0-3 Few /LPF (0-3); TRANSITIONAL EPITHEL CELL 0-3 Few /LPF (None Seen); URINE CLARITY CLOUDY; URINE RBC >20 Many /HPF (0-2); URINE WBC-REFLEX >25 Many /HPF (0-5); WBC CLUMPS Moderate (None Seen)
[2020-10-15 08:00] VITALS: BP 184/78
[2020-10-15 19:00] VITALS: BP 113/64
[2020-10-16 08:00] VITALS: BP 137/70
[2020-10-16 19:00] VITALS: BP 112/41
[2020-10-17 05:40] LABS: HEMATOCRIT 35.5 % (37.0-47.0); MCHC 33.9 g/dL (28.0-37.0); MCV 97.4 fL (80.0-100.0); MPV 9.4 fl. (7.2-11.1); RBC 3.65 mil/uL (4.20-5.00); RDW-CV 15.9 % (10.5-14.5); WBC 6.3 thou/uL (4.0-11.0)
[2020-10-17 06:02] LABS: CALCIUM 8.7 mg/dL (8.5-10.1); POTASSIUM 4.4 mmol/L (3.5-5.1)
[2020-10-17 08:00] VITALS: BP 150/64
[2020-10-17 19:30] VITALS: BP 120/56
[2020-10-18 07:30] VITALS: BP 150/64
[2020-10-18 19:30] VITALS: BP 126/51
[2020-10-19 07:45] VITALS: BP 138/57
[2020-10-19 20:00] VITALS: BP 127/57
[2020-10-20 08:00] VITALS: BP 141/64
[2020-10-20 19:51] VITALS: BP 104/53
[2020-10-21 08:15] VITALS: BP 128/66
[2020-10-21 20:00] VITALS: BP 137/66
[2020-10-22 08:37] VITALS: BP 141/61
[2020-10-22 21:25] VITALS: BP 121/54
[2020-10-23 04:15] LABS: HEMATOCRIT 34.5 % (37.0-47.0); HEMOGLOBIN 11.6 gm/dL (12.0-15.0); MCH 33.1 pg (26.0-34.0); MCHC 33.7 g/dL (28.0-37.0); MCV 98.4 fL (80.0-100.0); MPV 8.7 fl. (7.2-11.1); RBC 3.51 mil/uL (4.20-5.00); RDW-CV 16.1 % (10.5-14.5); WBC 5.2 thou/uL (4.0-11.0)
[2020-10-23 04:39] LABS: CALCIUM 9.3 mg/dL (8.5-10.1); CREATININE 1.5 mg/dL (0.6-1.3); MAGNESIUM 1.9 mg/dL (1.8-2.4); POTASSIUM 4.3 mmol/L (3.5-5.1); TOTAL BILIRUBIN 0.4 mg/dL (<0.1-1.0); TOTAL PROTEIN 6.3 g/dL (6.4-8.2)
[2020-10-23 08:07] VITALS: BP 139/62
[2020-10-23 20:00] VITALS: BP 139/59
[2020-10-24 04:46] LABS: HEMATOCRIT 33.8 % (37.0-47.0); HEMOGLOBIN 11.4 gm/dL (12.0-15.0); MCH 33.3 pg (26.0-34.0); MCHC 33.7 g/dL (28.0-37.0); MCV 98.5 fL (80.0-100.0); MPV 8.8 fl. (7.2-11.1); RBC 3.43 mil/uL (4.20-5.00); RDW-CV 16.6 % (10.5-14.5); WBC 5.1 thou/uL (4.0-11.0)
[2020-10-24 05:26] LABS: CALCIUM 9.4 mg/dL (8.5-10.1); CREATININE 1.2 mg/dL (0.6-1.3); POTASSIUM 4.5 mmol/L (3.5-5.1)
[2020-10-24 05:34] LABS: ALBUMIN 3.1 g/dL (3.4-5.0); CALCIUM 8.8 mg/dL (8.5-10.1); CREATININE 1.1 mg/dL (0.6-1.3); PHOSPHORUS* 4.4 mg/dL (2.5-4.9); POTASSIUM 4.2 mmol/L (3.5-5.1)
[2020-10-24 08:30] VITALS: BP 151/80
[2020-10-24 19:00] VITALS: BP 122/51
[2020-10-25 07:30] VITALS: BP 138/60
[2020-10-25 20:30] VITALS: BP 110/58
[2020-10-26 04:13] LABS: HEMATOCRIT 34.6 % (37.0-47.0); HEMOGLOBIN 11.5 gm/dL (12.0-15.0); MCHC 33.3 g/dL (28.0-37.0); MCV 99.1 fL (80.0-100.0); MPV 8.6 fl. (7.2-11.1); RBC 3.49 mil/uL (4.20-5.00); RDW-CV 16.5 % (10.5-14.5); WBC 5.8 thou/uL (4.0-11.0)
[2020-10-26 04:41] LABS: CALCIUM 8.8 mg/dL (8.5-10.1); CREATININE 1.7 mg/dL (0.6-1.3); MAGNESIUM 2.3 mg/dL (1.8-2.4); POTASSIUM 4.6 mmol/L (3.5-5.1)
[2020-10-26 07:38] VITALS: BP 122/51
[2020-10-26 20:17] VITALS: BP 100/40
[2020-10-27 07:30] VITALS: BP 152/67
[2020-10-27 21:23] VITALS: BP 119/47
[2020-10-28 04:47] LABS: HEMATOCRIT 32.2 % (37.0-47.0); HEMOGLOBIN 10.8 gm/dL (12.0-15.0); MCH 33.6 pg (26.0-34.0); MCHC 33.7 g/dL (28.0-37.0); MCV 99.8 fL (80.0-100.0); MPV 8.6 fl. (7.2-11.1); RBC 3.23 mil/uL (4.20-5.00); RDW-CV 16.5 % (10.5-14.5); WBC 4.1 thou/uL (4.0-11.0)
[2020-10-28 05:18] LABS: ALBUMIN 2.9 g/dL (3.4-5.0); CALCIUM 8.7 mg/dL (8.5-10.1); PHOSPHORUS* 4.5 mg/dL (2.5-4.9); POTASSIUM 4.2 mmol/L (3.5-5.1)
[2020-10-28 11:40] VITALS: BP 148/70
[2020-10-28 20:03] VITALS: BP 103/62
[2020-10-29 07:30] VITALS: BP 145/61
[2020-10-29 08:00] VITALS: BP 145/61
[2020-10-29 19:00] VITALS: BP 135/55
[2020-10-30 07:30] VITALS: BP 143/69
[2020-10-30] MEDS ORDERED: FLOMAX0.4 MG PO (08:09)
[2020-10-30 10:38] VITALS: BP 143/69
[2020-10-30 10:46] VITALS: BP 143/69
[2020-10-30 11:30] VITALS: BP 143/69
== END 2020-10-30 15:49 | DRG 71 ==
LOC: M.REH 15:15
PROVIDERS: Family Medicine; Internal Medicine; ADMIT Physical Medicine & Rehabilitation; ATTEND Physical Medicine & Rehabilitation
DX: G93.41 Metabolic encephalopathy (principal); E87.1 Hypo-osmolality and hyponatremia; E44.0 Moderate protein-calorie malnutrition; N39.0 Urinary tract infection, site not specified; S92.902A Unspecified fracture of left foot, initial encounter for closed fracture; E11.65 Type 2 diabetes mellitus with hyperglycemia; I10 Essential (primary) hypertension; E66.01 Morbid (severe) obesity due to excess calories; G89.4 Chronic pain syndrome; W18.39XA Other fall on same level, initial encounter; F44.4 Conversion disorder with motor symptom or deficit; M47.9 Spondylosis, unspecified; Y93.89 Activity, other specified; Y92.89 Other specified places as the place of occurrence of the external cause; Y99.8 Other external cause status; Z20.828 Contact with and (suspected) exposure to other viral communicable diseases; Z88.8 Allergy status to other drugs, medicaments and biological substances; Z90.49 Acquired absence of other specified parts of digestive tract; Z98.42 Cataract extraction status, left eye; Z98.41 Cataract extraction status, right eye; Z79.891 Long term (current) use of opiate analgesic